=== PATIENT | male | born 1980 | race Caucasian/White ===

== ENCOUNTER 2024-01-01 07:53 | Outpatient (CLI) | payer OTHER, SELFPAY ==
[2024-01-01 12:44] LABS: Alanine Aminotransferase 37 U/L (6-50); Albumin Level 4.5 g/dL (3.5-5.1); Alkaline Phosphatase 43 U/L (38-126); Anion Gap 4 mmol/L (8-16); Aspartate Amino Transferase 44 U/L (17-59); Bilirubin,Total 0.7 mg/dL (0.2-1.3); Blood Urea Nitrogen 13 mg/dL (9-20); Calcium 9.9 mg/dL (8.4-10.2); Carbon Dioxide 31 mmol/L (22-30); Chloride 104 mmol/L (98-107); Cholesterol 245 mg/dL (0-200); Estimated Glomerular Filt Rate > 60; Glucose 92 mg/dL (65-110); HDL Direct 52 mg/dL; Potassium 4.2 mmol/L (3.4-5.0); Sodium 139 mmol/L (137-145); Triglycerides 122 mg/dL (<150)
[2024-01-01 12:55] LABS: LDL Cholesterol Direct 149 mg/dL
[2024-01-01 13:21] LABS: HIV 1/2 Ab P24 Ag Result Negative (Negative)
[2024-01-01 13:40] LABS: Hepatitis C Virus Antibody Negative (Negative)
[2024-01-01 14:06] LABS: Chlamydia trachomatis NOT DETECTED (NOT DETECTE); Neisseria gonorrhoeae PCR NOT DETECTED (NOT DETECTE)
[2024-01-01 15:12] LABS: Rapid Plasma Reagin Non-Reactive (NonReactive)
== END 2024-01-01 07:54 | disposition home or self-care (01) ==
LOC: ANHGOSHLAB 07:54
PROVIDERS: Visit Provider Family Medicine
DX: Z72.51 High risk heterosexual behavior (principal); Z13.220 Encounter for screening for lipoid disorders; Z13.228 Encounter for screening for other metabolic disorders
CPT/HCPCS: 36415; 80053; 80061; 86592; 86703; 86803; 87491; 87591; G0432

== ENCOUNTER → 2024-01-01 08:21 | Outpatient (CLI) | payer OTHER, SELFPAY ==
--- NOTE | ~2024-01-01 | US_ITS ---
EXAMINATION: US scrotum doppler DATE: 01/01/2024 08:45 INDICATION: Other specified disorders of the male genitalia. Left-sided palpable abnormality. TECHNIQUE: Grayscale and Doppler ultrasound images of the testes were obtained. COMPARISON: None. FINDINGS: The right testis measures 3.9 x 3.3 x 2.4 cm. The left testis measures 4.9 x 3.0 x 2.6 cm. There is normal vascular flow to both testes. The right epididymis is normal with normal vascular carmita w. The left epididymis demonstrates 16 mm and 17 mm cysts.. There is no varicocele or hydrocele. IMPRESSION: 1. Benign cysts in the left epididymis. Reviewed, dictated and finalized at location A. [employer] INTERN
== END ==
PROVIDERS: PCP Family Medicine; Visit Provider Family Medicine
DX: N50.3 Cyst of epididymis (principal)
CPT/HCPCS: 76870; 93976

== ENCOUNTER 2025-07-20 14:30 | Outpatient (CLI) | payer OTHER, SELFPAY ==
--- NOTE | 2025-07-20 14:35 | ECG_ITS ---
Test Date: 2025-07-20 14:47:02 Measurements Intervals Gardner Rate: 99 P: 69 LA: 122 QRS: 67 QRSD: 90 T: 38 QT: 327 QTc: 421 Interpretive Statements SINUS RHYTHM NORMAL ECG WARNING: DATA QUALITY MAY AFFECT INTERPRETATION No previous ECG available for comparison Electronically Signed On 07-20-2025 16:52:15 CDT by Albaro Friedman M.D.
--- OUTSIDE RECORDS SUMMARY | 2025-07-20 15:12 | XMS_ITS | Clinical Summary ---
Author Organization [facility] MICHELLE BARAHONA Address [address] [facility] [place] [address] Care Team Providers Care Licensed Acupuncturist Name Role Phone Unavailable Primary Care Provider Unavailabl e Allergies Active Allergy Reactions Criticality Noted Date Comments Penicillins Anaphylaxis High 07/31/2018 Medications No known medications Active Problems No known active problems Family History Medical History Relation Name Comments Healthy Father Healthy Mother Healthy Sister 1 Healthy Sister 2 Relation Name Status Comments Father Alive Mother Alive Sister 1 Alive Sister 2 Social History Tobacco Use Types Packs/Day Years Used Date Smoking Tobacco: Every Day Cigarettes 1 10 Smokeless Tobacco: Never Alcohol Use Standard Drinks/Week Comments No 0 (1 standard drink = 0.6 oz pur e alcohol) Sex and Gender Information Value Date Recorded Sex Assigned at Not on file Legal Sex Male 8:05 AM CDT Gender Identity Not on file Sexual Orientation Not on file Last Filed Vital Signs Vital Sign Reading Time Taken Comments Blood Pressure 122/82 07/31/2018 8:20 AM CDT Pulse 89 07/31/2018 8:20 AM CDT Temperature 36.8 C (98.2 F) 07/31/2018 8:20 AM CDT Respiratory Rate 16 07/31/2018 8:20 AM CDT Oxygen Saturation 98% 07/31/2018 8:20 AM CDT Inhaled Oxygen Concentration - - Weight 74.8 kg (165 lb) 07/31/2018 8:20 AM CDT Height 167.6 cm (5' 6) 07/31/2018 8:20 AM CDT Body Mass Index 26.63 07/31/2018 8:20 AM CDT Plan of Treatment Health Maintenance Due Date Last Done Comments DTAP/TDAP/TD VACCINES (1 - Tdap) 1999 HEPATITIS B VACCINES (1 of 3 - 19+ 3-dose series) 03/1999 HPV VACCINES (1 - 3-dose SCDM series) 2007 INFLUENZA VACCINE (#1) 2025 Insurance [employer]
--- OUTSIDE RECORDS SUMMARY | 2025-07-20 15:12 | XMS_ITS | Encounter Summary ---
Author Organization [facility] Health Address [address] [place] [address] Care Team Providers Care Tape Coater Name Role Phone Unavailable Primary Care Provider Unavailabl e Prior Encounters Date Type Department Care Team Description 11/22/2019 Converted 13x Documents [facility] [address] [place] [address] <No scans attached> 11/22/2019 Converted CPS Chart Documents [facility] [address] [place] [address] <No scans attached> Plan of Treatment Not on file Procedures Procedure Name Priority Date/Time Associated Diagnosis Comments TREATMENT OF COMPLICATIONS (POST-SURGICAL) - UNUSUAL CIRCUMSTANCES, BY REPORT Routine 05/15/2018 2:00 AM CDT OFFICE VISIT FOR OBSERVATION (DURING REGULARLY SCHEDULED HOURS) - NO OTHER SERVICES PERFORMED Routine 05/14/2018 2:00 AM CDT OS CONSULT Routine 05/01/2018 2:00 AM CDT 16 REMOVAL OF IMPACTED TOOTH - COMPLETELY BONY Routine 05/01/2018 2:00 AM CDT 32 REMOVAL OF IMPACTED TOOTH - PARTIALLY BONY Routine 05/01/2018 2:00 AM CDT 17 REMOVAL OF IMPACTED TOOTH - PARTIALLY BONY Routine 05/01/2018 2:00 AM CDT 31 EXTRACTION, ERUPTED TOOTH REQUIRING REMOVAL OF BONE AND/OR SECTIONING OF TOOTH Routine 05/01/2018 2:00 AM CDT 18 EXTRACTION, ERUPTED TOOTH REQUIRING REMOVAL OF BONE AND/OR SECTIONING OF TOOTH Routine 05/01/2018 2:00 AM CDT 15 EXTRACTION, ERUPTED TOOTH REQUIRING REMOVAL OF BONE AND/OR SECTIONING OF TOOTH Routine 05/01/2018 2:00 AM CDT 2 EXTRACTION, ERUPTED TOOTH REQUIRING REMOVAL OF BONE AND/OR SECTIONING OF TOOTH Routine 05/01/2018 2:00 AM CDT 1 EXTRACTION, ERUPTED TOOTH REQUIRING REMOVAL OF BONE AND/OR SECTIONING OF TOOTH Routine 05/01/2018 2:00 AM CDT THERAPEUTIC PARENTERAL DRUGS, TWO OR MORE ADMINISTRATIONS, DIFFERENT MEDICATIONS Routine 05/01/2018 2:00 AM CDT DEEP SEDATION/GENERAL ANESTHESIA EACH SUBSEQUENT 15 MINUTE INCREMENT Routine 05/01/2018 2:00 AM CDT DEEP SEDATION/GENERAL ANESTHESIA FIRST 15 MINUTES Routine 05/01/2018 2:00 AM CDT 32 LIMITED ORAL EVALUATION - PROBLEM FOCUSED Routine 04/14/2018 2:00 AM CDT SINGLE X-RAY Routine 04/14/2018 2:00 AM CDT PERIO CONSULT Routine 11/14/2017 2:00 AM WILDLAND FIRE FIGHTER SPECIALIST COMPREHENSIVE ORAL EVALUATION - NEW OR ESTABLISHED PATIENT Routine 11/14/2017 2:00 AM WILDLAND FIRE FIGHTER SPECIALIST PANORAMIC RADIOGRAPHIC IMAGE Routine 11/14/2017 2:00 AM WILDLAND FIRE FIGHTER SPECIALIST INTRAORAL - COMPREHENSIVE SERIES OF RADIOGRAPHIC IMAGES Routine 11/14/2017 2:00 AM WILDLAND FIRE FIGHTER SPECIALIST INTRAORAL PHOTO Routine 11/14/2017 2:00 AM WILDLAND FIRE FIGHTER SPECIALIST INTRAORAL PHOTO Routine 11/14/2017 2:00 AM WILDLAND FIRE FIGHTER SPECIALIST INTRAORAL PHOTO Routine 11/14/2017 2:00 AM WILDLAND FIRE FIGHTER SPECIALIST INTRAORAL PHOTO Routine 11/14/2017 2:00 AM WILDLAND FIRE FIGHTER SPECIALIST 3 LO COMPOSITE FILLING Routine 8 2:00 AM WILDLAND FIRE FIGHTER SPECIALIST 2 LO COMPOSITE FILLING Routine 8 2:00 AM WILDLAND FIRE FIGHTER SPECIALIST 15 O COMPOSITE FILLING Routine 8 2:00 AM WILDLAND FIRE FIGHTER SPECIALIST 14 O COMPOSITE FILLING Routine 8 2:00 AM WILDLAND FIRE FIGHTER SPECIALIST 7 DL COMPOSITE FILLING Routine 8 2:00 AM WILDLAND FIRE FIGHTER SPECIALIST Visit Diagnoses Not on file
--- OUTSIDE RECORDS SUMMARY | 2025-07-20 15:12 | XMS_ITS | Clinical Summary ---
Author Organization [facility] Health Address [address] [place] [address] Care Team Providers Care Senior Fund Accountant Name Role Phone Unavailable Primary Care Provider Unavailabl e Social History Tobacco Use Types Packs/Day Years Used Date Smoking Tobacco: Never Assessed Sex and Gender Information Value Date Recorded Sex Assigned at Not on file Legal Sex Male 1:00 AM PST Gender Identity Not on file Sexual Orientation Not on file Plan of Treatment Not on file
== END 2025-07-20 14:31 | disposition home or self-care (01) ==
LOC: ANHSURGERY 14:35
PROVIDERS: Visit Provider Urology
DX: Z01.810 Encounter for preprocedural cardiovascular examination (principal); F17.210 Nicotine dependence, cigarettes, uncomplicated
CPT/HCPCS: 93005

== ENCOUNTER 2025-07-28 01:08 | Day surgery (SDC) | payer OTHER, SELFPAY ==
[2025-07-18 13:51] VITALS: BMI 27.5
--- NOTE | 2025-07-18 13:52 | PC.NURSE ---
Report to the Outpatient Waiting Room, entrance under the green pavilion located off [facility], at time _0600_ on date _[id number]_. Planned Procedure Time: _0730_.? Time changes happen often and if your time is changed the preop area will call you the afternoon before. - You and your visitor will be asked to self-screen and do not enter if you have any COVID symptoms. Please call surgeon if you need to reschedule. - A mask is optional within the hospital at this time. Patients may have clear liquids (water, carbonated beverages, clear teas, apple juice) until 3 hours prior to surgery with a maximum of 20 ounces. - No food from midnight until time of surgery and no smoking, or chewing tobacco (or any form of nicotine). No chewing gum, candy or mints. Take only the following medications with a SIP of water on the morning of surgery: ___None____ DO NOT STOP ANY OF YOUR OTHER PRESCRIPTION MEDICATIONS PRIOR TO SURGERY EXCEPT THE FOLLOWING Hold all vitamins and supplements for 3 days per anesthesiologist. Medications to discontinue per physician Date to take last dose Please no make-up, nail kittitian, hairspray, perfume, deodorant, or body powder the day of surgery.? No jewelry (including any body piercings) or valuables the day of surgery, leave them at home.? Please take a shower or bath the night before, or the morning of, surgery with an antibacterial soap.? Wear comfortable, loose fitting clothing.? - Jewelry must be removed prior to entering the operating room.? Rings and piercings that are not removed may be cut off. - The hospital will not accept responsibility for valuables.? - Please leave all valuables, including medications, at home the day of surgery. If you are going home after surgery, a licensed delivery driver/customer service must drive you home.? - NO public transportation without another adult if you receive anesthesia. - We recommend that an adult stay with you for 24 hours following discharge. - We also recommend that you do not drive, make important decision, drink alcoholic beverages, or take any drugs that were not prescribed by your health care provider for at least 24 hours after your discharge time. Follow any additional instructions given to you from your surgeon. Telephone instructions given to __Stevsusy__and asked if any additional questions and then verbalized understanding. Patient advised to call surgeon office or pre surgery nurse liaison [phone] if any additional questions.
--- NOTE | 2025-07-25 06:57 | PM.HPGS ---
History of Present Illness History of Present Illness Consent: Risks, benefits, and alternatives have been discussed and questions answered. Patient agrees to proceed with procedure. Chief complaint: Spermatocele. Sterilization Narrative: Alex Gross is a 44 year old male seen in 07/2024 2 confluent slightly tender left spermatocele in the head of the epididymis. ?We will put him on 10 days of Bactrim. ?If tenderness persist we discussed spermatocele. After initial response he now elects for elective spermatocelectomy. Additionally we have discussed simultaneous bilateral vasectomy. Review of Systems Review of Systems: All systems reviewed & are unremarkable except as noted in HPI and below PMFSH Family History Family History Mother Depression Heart disease Social History Social History Smoking packs per day: 1 Smoking cigarettes per day: 20.0 Years smoked: 20 Smoking pack-years: 20.00 Smoking status: Former smoker Tobacco type: cigarettes, cigars and e-cigarettes/vaping Smoking end date: 07/18/20 Additional smoking assessment comments: Currently vaping and occasional cigars on poker night. Alcohol intake: current Alcohol use details: social Substance use: current Substance use type: marijuana Other substance usage details: a couple times a year. Lack of Transportation: No Lack of Food: Never True Current Housing: I Have Housing Concerned About Future Housing: No Difficulty Paying Gas/Electric Bills: No Difficulty Paying for Meds: No Currently Unemployed: No Education: Trade/Vocational Certificate Difficulty w/ Childcare or Family Care: No Living arrangements: with family Occupation/Education: occupation Additional occupation/education comments: [employer] worker Gender identity (if verbalized by the patient): Male Spiritual care concerns: No Agree to blood products: Yes Meds Home Medications and Allergies Home Medications ?Medication ?Instructions ?Recorded ?Confirmed ?Type No Home Medications 07/18/25 07/18/25 History Allergies Allergy/AdvReac Type Severity Reaction Status Date / Time codeine Allergy Severe Difficulty Verified 07/18/25 13:41 Swallowing Exam Const: General: no acute distress Resp: Effort & Inspection: normal respiratory effort GI: Inspection: non-distended GI Palp: No abdominal tenderness and No Guarding due to palpation present (GI) Auscultation: normal bowel sounds Assessment and Plan Assessment and plan (1) Spermatocele: Code(s): N43.40 - Spermatocele of epididymis, unspecified Status: Acute (2) 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
[2025-07-28] VITALS (7 sets, daily range): BP systolic 82–128; BP diastolic 55–83; PULSE 74–103; RESP 14–18; TEMP 36.2–36.9; O2SAT 94–98; BMI 26.4
--- OUTSIDE RECORDS SUMMARY | 2025-07-28 01:11 | XMS_ITS | Encounter Summary ---
Author Organization [facility] Health Address [address] [place] [address] Care Team Providers Care Chief Internal Auditor Name Role Phone Unavailable Primary Care Provider Unavailabl e Prior Encounters Date Type Department Care Team Description 11/22/2019 Converted 13x Documents [facility] [address] [place] [address] <No scans attached> 11/22/2019 Converted CPS Chart Documents [facility] [address] [place] [address] <No scans attached> Plan of Treatment [...] CDT PERIO CONSULT Routine 11/14/2017 2:00 AM BACTERIOLOGY RESEARCH ASSISTANT COMPREHENSIVE ORAL EVALUATION - NEW OR ESTABLISHED PATIENT Routine 11/14/2017 2:00 AM BACTERIOLOGY RESEARCH ASSISTANT PANORAMIC RADIOGRAPHIC IMAGE Routine 11/14/2017 2:00 AM BACTERIOLOGY RESEARCH ASSISTANT INTRAORAL - COMPREHENSIVE SERIES OF RADIOGRAPHIC IMAGES Routine 11/14/2017 2:00 AM BACTERIOLOGY RESEARCH ASSISTANT INTRAORAL PHOTO Routine 11/14/2017 2:00 AM BACTERIOLOGY RESEARCH ASSISTANT INTRAORAL PHOTO Routine 11/14/2017 2:00 AM BACTERIOLOGY RESEARCH ASSISTANT INTRAORAL PHOTO Routine 11/14/2017 2:00 AM BACTERIOLOGY RESEARCH ASSISTANT INTRAORAL PHOTO Routine 11/14/2017 2:00 AM BACTERIOLOGY RESEARCH ASSISTANT 3 LO COMPOSITE FILLING Routine 8 2:00 AM BACTERIOLOGY RESEARCH ASSISTANT 2 LO COMPOSITE FILLING Routine 8 2:00 AM BACTERIOLOGY RESEARCH ASSISTANT 15 O COMPOSITE FILLING Routine 8 2:00 AM BACTERIOLOGY RESEARCH ASSISTANT 14 O COMPOSITE FILLING Routine 8 2:00 AM BACTERIOLOGY RESEARCH ASSISTANT 7 DL COMPOSITE FILLING Routine 8 2:00 AM BACTERIOLOGY RESEARCH ASSISTANT Visit Diagnoses Not on file
--- OUTSIDE RECORDS SUMMARY | 2025-07-28 01:11 | XMS_ITS | Clinical Summary ---
Author Organization [facility]HELLE [facility]AHONA Address [address] [place] [address] Care Team Providers Care Photographic Restorer Name Role Phone Unavailable Primary Care Provider [...] series) 2007 INFLUENZA VACCINE (#1) 2025 [employer]
--- NOTE | 2025-07-28 06:17 | WPDHPUPDATE1 ---
History and Physical Update Update Date/Time: 07/28/25 06:17 History and Physical has been reviewed, including an updated exam of the patient. There are NO changes in the patient's condition. Risks, benefits, and alternatives have been discussed and questions answered. Patient agrees to proceed with procedure.
[2025-07-28] MEDS: LACTATED RINGERS 1,000 ML 30 ML IV CONT (06:20)
--- NOTE | 2025-07-28 06:47 | P.PNAN_ITS ---
Anes - Initial Pre Proc Eval Procedure: Operation Date: 07/28/25 07:30 Proposed Procedures p Left Spermatocelectomy - Fadi Chavez MD s Bilateral Vasectomy - Fadi Chavez MD Date/Time: 07/28/25 06:47 Surgeon: Fadi Chavez MD Pre Op Diagnosis: Spermatocele. Sterilization Patient Data Age: 44 Gender: M Height: 1.68 m Weight: 74.4 kg Last Vital Signs Temp 36.9 C 07/28/25 06:05 Pulse 103 H 07/28/25 06:05 Resp 14 07/28/25 06:05 BP 128/83 07/28/25 06:05 Pulse Ox 98 07/28/25 06:05 Allergies Allergy/AdvReac Type Severity Reaction Status Date / Time codeine Allergy Severe Anaphylactic Verified 07/28/25 06:26 Shock Home Medications ?Medication ?Instructions ?Recorded ?Confirmed ?Type No Home Medications 07/18/25 07/18/25 H istory Patient hx anesthesia problems: none Family hx anesthesia problems: none Results Review: All pre-operative results and documents have been reviewed as part of the pre- operative evaluation. [facility] Past Medical History Medical History Smoker Family History Family History Mother Depression Heart disease Social History Social History Smoking packs per day: 1 Smoking cigarettes per day: 20.0 Years smoked: 20 Smoking pack-years: 20.00 Smoking status: Former smoker Tobacco type: cigarettes, cigars and e-cigarettes/vaping Smoking end date: 07/18/20 Additional smoking assessment comments: Currently vaping and occasional cigars on poker night. Alcohol intake: current Alcohol use details: social Substance use: current Substance use type: marijuana Other substance usage details: a couple times a year. Lack of Transportation: No Lack of Food: Never True Current Housing: I Have Housing Concerned About Future Housing: No Difficulty Paying Gas/Electric Bills: No Difficulty Paying for Meds: No Currently Unemployed: No Education: Trade/Vocational Certificate Difficulty w/ Childcare or Family Care: No Living arrangements: with family Occupation/Education: occupation Additional occupation/education comments: [employer] worker Gender identity (if verbalized by the patient): Male Spiritual care concerns: No Agree to blood products: Yes Anes - Eval Final PreProcedure Day of Procedure 07/28/25 06:47 Patient weight: overweight Heart: regular rate and rhythm Lungs: clear to auscultation Airway: Mallampati scale class II Neurological: alert and oriented Last oral intake: >/= 8 hours ASA classification: II Emergent: no Anesthetic plan: proceed Anesthesia type and monitoring: general LMA and standard monitoring Results Review: All pre-operative results and documents have been reviewed as part of the pre- operative evaluation. Informed Consent: The patient's anesthetic plan and its attendant risks and benefits were discussed with the patient/family/POA. Questions were solicited and answers provided to the satisfaction of the patient/family/POA.
[2025-07-28] MEDS: ceFAZolin 2 GM in SODIUM CHLORIDE 0.9% IV 50 ML 100 ML IVPB (07:28)
--- NOTE | 2025-07-28 07:58 | S_PTH ---
PATIENT: Alex Gross LOC: [facility] U#:[id number] AGE/SX: 44/M ROOM: RE07/28/[address]: Fadi Chavez MD : 1980 BED: DIS: 07/28/2025 SPEC #: [id number] RECD: 07/28/25 10:12 STATUS: MICHELLE RETete #: [id number] IVON: 07/28/25 07:[address]: Fadi Chavez DEPT: [facility] Surgical RECD BY: Ivon Meza ENTERED: 07/28/25 10:12 SP TYPE: Surgical OTHR DR: UNKNOWN,DOCTOR Tissues: A - Spermatocele Sac B - Vas Deferens C - Vas Deferens Procedures: Gross Exam Level 1 Hematoxylin and Eosin Stain Gross and Microscopic Level 3
[2025-07-28] MEDS: LIDOCAINE 1% LOCAL INJ 10 ML VIAL INFILTRATE (08:03)
--- NOTE | 2025-07-28 08:21 | W.PM.PROC2 ---
Procedure Note - Detailed Date of Procedure 07/28/25 Pre-op Diagnosis Spermatocele. Sterilization Post-op Diagnosis Same Procedure Performed Left spermatocele ectomy, bilateral vasectomy Surgeon Fadi Chavez MD Anesthesia General Description of Procedure The patient was brought to the operative suite where he was prepped and draped in routine sterile fashion while in a supine position after the uneventful induction of a general LMA anesthetic. An incision was made in the median raphe of the scrotum and dissection was carried into the left tunica vaginalis. There is no appreciable hydrocele but a moderateleft spermatocele arising from the epididymis. This spermatocele is dissected from the spermatic cord and testicle to its origin from the epididymis. It is transected at its origin with care taken to avoid any injury to the testicle or epididymis. Care was taken to avoid compromise to vessels in the spermatic cord. The testicle was examined and found to be both visibly and palpably normal. The testicle was restore returned to an orthotopic positioned. Attention was then turned to the vasectomy. Each vas deferens is delivered and a short segment excised and sent for pathology sectioning. The cut end of the vas deferens are cauterized and spermatic cord fascia is interposed between the cut ends. The vasa are returned to an orthotopic position and the dartos muscle was closed with a running 4-0 chromic and the skin was likewise closed with a running 4-0 chromic. Estimated blood loss throughout this procedure was 3cc. Patient tolerated the procedure well and was taken to the recovery room in good condition. Drains No Packing No Pathology Yes Complications No immediate complications
[2025-07-28] MEDS: KETOROLAC 30 MG/ML VIAL (*BKC) IV PUSH (09:17)
== END 2025-07-28 09:40 | disposition home or self-care (01) ==
PROVIDERS: Visit Provider Urology
PROC: (CPT 54840; principal; 2025-07-28 07:30)
PROC: (CPT 55250; 2025-07-28 07:30)
DX: Z30.2 Encounter for sterilization (principal); N43.40 Spermatocele of epididymis, unspecified; F17.290 Nicotine dependence, other tobacco product, uncomplicated; F12.90 Cannabis use, unspecified, uncomplicated; Z82.49 Family history of ischemic heart disease and other diseases of the circulatory system
CPT/HCPCS: 55250; 54840; 88300; 88304; J0690; A9270; J1885; J2003; J2250; J2405; J2704; J3010; J7120